=== PATIENT | male | born 1940 | race Caucasian/White ===

== ENCOUNTER → 2016-12-29 | Outpatient (CLI) | payer MEDICARE ==
[2016-12-12 15:38] VITALS: BP 143/59
[~2016-12-29] MED LIST: ACET-704 PO; ALPR0.5T PO; ASPI81TA2 PO; ATORVASTATIN CA80 MG PO; BUDE10.2 IH; CLOP75TA27 PO; DULO60CA6 PO; FURO-69 PO; ISOS30TA PO; METF500T4 PO; METO100T5 PO; QUIN40TA7 PO; TIOT18CA IH; TRAZ100T12 PO; VENTOLIN HFA18 GM INH
--- NOTE | 2016-12-29 13:09 | KCIC ---
PROCEDURE Two-view chest HISTORY Pleural effusion. COMPARISON Images are available from December 12, 2016 but prior report is not available. FINDINGS Pacing and defibrillating device is identified. No pneumothorax. No pleural effusion. No focal airspace consolidation. The cardiac silhouette appears upper limits of normal. No gross vascular congestion. IMPRESSION Upper limits normal cardiac silhouette size. No airspace consolidation Electronically signed by: Josiah Barreto MD (Dec 29, 2016 13:07:40)
== END | disposition home or self-care (01) ==
LOC: KCIC 09:22
PROVIDERS: ATTEND Family Medicine
DX: J90 Pleural effusion, not elsewhere classified (principal); Z95.811 Presence of heart assist device
CPT/HCPCS: 71020

== ENCOUNTER → 2017-01-01 | Outpatient (CLI) | payer MEDICARE ==
[2016-12-12 15:38] VITALS: BP 143/59
--- NOTE | 2017-01-01 16:54 | CARD ---
APPROVED REPORT EXAM: Two-dimensional and M-mode echocardiogram with Doppler and color Doppler. Other Information Quality : AverageHR: 56bpm INDICATION Pleural Effusion Cardiomyopathy 2D DIMENSIONS RVDd3.2 (2.9-3.5cm)Left Atrium(2D)3.9 (1.6-4.0cm) IVSd0.9 (0.7-1.1cm)Aortic Root(2D)2.9 (2.0-3.7cm) LVDd4.9 (3.9-5.9cm)LVOT Diameter2.4 (1.8-2.4cm) PWd0.8 (0.7-1.1cm)LVDs3.5 (2.5-4.0cm) FS (%) 27.7 %SV60.4 ml LVEF(%)53.6 (>50%) Aortic Valve AoV Peak Mark.110.0cm/sAoV VTI23.5cm AO Peak GR.4.8mmHgLVOT Peak Mark.95.8cm/s LVOT VTI 20.82cmAO Mean GR.3mmHg JANIS (VMAX)3.96cr5PRG (VTI)4.01cm2 Mitral Valve MV E Htlmmmaa92.7cm/sMV DECEL DQZE627kd MV A Jxdvfumn53.0cm/sMV E Mean Gr.2mmHg MV FNJ64onP/A Ratio0.9 MV A Jvipdgkq500ayHGC (PHT)4.12cm2 TDI E/Lateral E'13.6E/Medial E'14.0 Pulmonary Vein S1 Tbelcitz60.8cm/sD2 Rtqxkfce96.1cm/s LEFT VENTRICLE The left ventricle is normal size. There is normal left ventricular wall thickness. Left ventricle sy stolic function is low normal. The Ejection Fraction is estimated at 50%. Transmitral Doppler flow pa ttern is Grade I-abnormal relaxation pattern. RIGHT VENTRICLE The right ventricle is normal size. There is normal right ventricular wall thickness. The right ventr icular systolic function is normal. ATRIA The left atrium is mildly dilated. The right atrium size is normal. The interatrial septum is intact with no evidence for an atrial septal defect or patent foramen ovale as noted on 2-D or Doppler imagi ng. AORTIC VALVE The aortic valve is trileaflet. The aortic valve is normal in structure and function. Doppler and Col or Flow revealed no significant aortic regurgitation. There is no significant aortic valvular stenosi s. MITRAL VALVE The mitral valve is normal in structure. There is no evidence of mitral valve prolapse. There is no m itral valve stenosis. Doppler and Color Flow revealed mild mitral regurgitation. TRICUSPID VALVE The tricuspid valve is normal in structure and function. Doppler and Color Flow revealed trace tricus pid valve regurgitation. There is no tricuspid valve stenosis. PULMONIC VALVE The pulmonic valve is not well visualized. GREAT VESSELS The aortic root is normal in size. Normal pulmonary venous flow (Doppler). The IVC is dilated and col lapses >50% with inspiration. PERICARDIAL EFFUSION There is no evidence of significant pericardial effusion. Critical Notification Critical Value: No <Conclusion> Left ventricle systolic function is low normal. The Ejection Fraction is estimated at 50%. Mild mitral regurgitation. Trace tricuspid valve regurgitation. There is no evidence of significant pericardial effusion.
== END | disposition home or self-care (01) ==
LOC: ECHO 10:42
PROVIDERS: ATTEND Family Medicine
DX: J90 Pleural effusion, not elsewhere classified (principal); I42.9 Cardiomyopathy, unspecified
CPT/HCPCS: 93306

== ENCOUNTER → 2017-01-09 | Outpatient (CLI) | payer MEDICARE ==
[~2017-01-09] VITALS: Ht 177.8 cm; Wt 101.8 kg
[2017-01-09] VITALS (12 sets, daily range): BP systolic 92–132; BP diastolic 51–69
[~2017-01-09] MED LIST changes: +FENTANYL PF 100 MCG/2 ML VIAL. IV ONE; +FENTANYL PF 100 MCG/2 ML VIAL. ONE; +HEPARIN for IV BOLUS 10,000 UNIT/10 ML VIAL. IART ONE; +HEPARIN for IV BOLUS 10,000 UNIT/10 ML VIAL. ONE; +IODIXANOL 320 MG/ML 100 ML VIAL. IART ONE; +IODIXANOL 320 MG/ML 100 ML VIAL. ONE; +IV 1/2 NORMAL SALINE 1,000 ML IV SCH; +LIDOCAINE 2% 20 ML VIAL. IJ ONE; +LIDOCAINE 2% 20 ML VIAL. ONE; +MIDAZOLAM HCL/PF 5 MG/5 ML VIAL IV ONE; +MIDAZOLAM HCL/PF 5 MG/5 ML VIAL ONE; +NITROGLYCERIN 200 MCG/2 ML SYRINGE FOR CATH/VASC LAB. IART ONE; +NITROGLYCERIN 200 MCG/2 ML SYRINGE FOR CATH/VASC LAB. ONE; +NITROGLYCERIN SUBLINGUAL 0.4 MG BOTTLE OF 25. SL PRN; +VERAPAMIL 5 MG/2 ML VIAL. IART ONE; +VERAPAMIL 5 MG/2 ML VIAL. ONE
[2017-01-09 09:12] LABS: CALCIUM 9.5 mg/dL (8.5-10.1); CREATININE 1.2 mg/dL (0.7-1.3); GFR 59.2; POTASSIUM 4.1 mmol/L (3.5-5.1)
[2017-01-09 09:17] LABS: HEMATOCRIT 46.7 % (39.0-53.0); HEMOGLOBIN 15.7 g/dL (13.0-17.5); RED BLOOD COUNT 5.14 x10^6/uL (4.30-5.70); RED CELL DISTRIBUTION WIDTH 13.2 % (11.5-14.5); WHITE BLOOD COUNT 10.5 x10^3/uL (4.0-11.0)
[2017-01-09 10:10] LABS: PROTHROMBIN TIME PATIENT 12.5 SEC (11.7-14.0)
--- NOTE | 2017-01-09 15:42 | CARD ---
APPROVED REPORT Procedure(s) performed: Left heart catheterization, selective coronary angiography, selective angiogr aphy of the bypass grafts via left transradial approach INDICATION The indication(s) include : unstable angina . PROCEDURE NARRATIVE After explaining the risks, benefits and alternative options, informed consent was obtained from todd ent. Patient was brought to the cardiac Group Account Director and his left wrist was prepped and draped in the usu al fashion after confirming a positive modified Matthew's test. Arterial access was obtained in the lef t radial artery and 6 Peruvian sheath was inserted. 6 Peruvian JR4 catheter was used to perform selective angiography of the left internal mammary artery graft to the left anterior descending artery, yocha dehe right coronary artery, saphenous vein graft to the marginal branch. 6 Peruvian IM catheter was used to perform selective angiography of the saphenous vein graft to the right coronary artery and also the left main coronary artery. Finally, 6 Peruvian pigtail catheter was used to perform left ventricular pr essure. Patient tolerated the procedure well. Hemostasis was achieved using TR band. There were no im mediate complications. FINDINGS 1. Hemodynamics: Left ventricle end diastolic pressure 24 mmHg. No pullback gradient across the aor tic valve. 2. Left ventriculography: Diaphragmatic wall hypokinesis with ejection fraction estimated at 45-50% . 3. Coronary and bypass graft angiography: a. The left main coronary artery arose from the left sinus of Valsalva, gave rise to the left anteri or descending and left circumflex arteries and showed mild diffuse disease. b. The left anterior descending artery showed 100% occlusion in the midsegment. The first diagonal b ranch did not show any significant stenosis. c. The left circumflex artery showed 100% occlusion in the midsegment. The first obtuse marginal bra nch showed mild to moderate diffuse disease distally. d. The right coronary artery arose from the right sinus of Valsalva showed 99% stenosis in the midse gment and 100% occlusion in the distal segment. e. The left internal mammary artery graft to the left anterior descending artery was widely patent. Distal to the anastomosis, the left anterior descending artery did not show any significant stenosis. f. The saphenous vein graft to the second obtuse marginal branch was widely patent. g. The saphenous vein graft to the right coronary artery was widely patent. Distal to the anastomosi s, the posterior descending branch did not show any significant stenosis. d. Conclusion 1. Coronary artery disease s/p coronary artery bypass surgery with patent left internal mammary anjel ry graft to the left anterior descending artery, patent saphenous vein graft to the second obtuse mar ginal branch and patent saphenous vein graft to the right coronary artery. 2. Diaphragmatic wall hypokinesis with ejection fraction estimated at 45-50%. Recommendations Medical Therapy
== END | disposition home or self-care (01) ==
LOC: CCL 08:27
PROVIDERS: ATTEND Internal Medicine Cardiovascular Disease
DX: I25.110 Atherosclerotic heart disease of native coronary artery with unstable angina pectoris (principal); I25.82 Chronic total occlusion of coronary artery; E78.00 Pure hypercholesterolemia, unspecified; J44.9 Chronic obstructive pulmonary disease, unspecified; M19.90 Unspecified osteoarthritis, unspecified site; F41.9 Anxiety disorder, unspecified; F32.9 Major depressive disorder, single episode, unspecified; E11.9 Type 2 diabetes mellitus without complications; Z98.41 Cataract extraction status, right eye; Z98.42 Cataract extraction status, left eye; Z90.49 Acquired absence of other specified parts of digestive tract; Z87.891 Personal history of nicotine dependence
CPT/HCPCS: 36415; 80048; 85027; 85610; 93458; C1769; C1892; J2250; J3010; J3490

== ENCOUNTER → 2018-02-07 | Outpatient (CLI) | payer MEDICARE | END | disposition home or self-care (01) | LOC: ECHO 12:44 | DX: I11.0 Hypertensive heart disease with heart failure (principal); I50.22 Chronic systolic (congestive) heart failure; I08.1 Rheumatic disorders of both mitral and tricuspid valves; E78.5 Hyperlipidemia, unspecified; J44.9 Chronic obstructive pulmonary disease, unspecified; E78.00 Pure hypercholesterolemia, unspecified; E66.9 Obesity, unspecified | CPT/HCPCS: 93306 ==

== ENCOUNTER → 2019-01-30 | Day surgery (SDC) | payer MEDICARE ==
[~2019-01-30] MED LIST changes: +ASPI-630 PO; -ASPI81TA2 PO; +ASPI81TA50 PO; -CLOP75TA27 PO; +CLOP75TA57 PO; -FENTANYL PF 100 MCG/2 ML VIAL. IV ONE; -FENTANYL PF 100 MCG/2 ML VIAL. ONE; -HEPARIN for IV BOLUS 10,000 UNIT/10 ML VIAL. IART ONE; -HEPARIN for IV BOLUS 10,000 UNIT/10 ML VIAL. ONE; -IODIXANOL 320 MG/ML 100 ML VIAL. IART ONE; -IODIXANOL 320 MG/ML 100 ML VIAL. ONE; -IV 1/2 NORMAL SALINE 1,000 ML IV SCH; +IV RINGERS,LACTATED 1000ML 1,000 ML IV SCH; -LIDOCAINE 2% 20 ML VIAL. IJ ONE; -LIDOCAINE 2% 20 ML VIAL. ONE; +LIDOCAINE 2% PF 5 ML VIAL. ONE; +METF500T16 PO; -METF500T4 PO; -MIDAZOLAM HCL/PF 5 MG/5 ML VIAL IV ONE; -MIDAZOLAM HCL/PF 5 MG/5 ML VIAL ONE; -NITROGLYCERIN 200 MCG/2 ML SYRINGE FOR CATH/VASC LAB. IART ONE; -NITROGLYCERIN 200 MCG/2 ML SYRINGE FOR CATH/VASC LAB. ONE; -NITROGLYCERIN SUBLINGUAL 0.4 MG BOTTLE OF 25. SL PRN; +PROPOFOL 20 ML IV ONE; +QUIN40TA16 PO; -QUIN40TA7 PO; +TRAZ-86 PO; -TRAZ100T12 PO; -VERAPAMIL 5 MG/2 ML VIAL. IART ONE; -VERAPAMIL 5 MG/2 ML VIAL. ONE
[2019-01-30 14:05] VITALS: BP 122/70
--- NOTE | 2019-02-04 09:12 | PATHOLOGY ---
[facility] Accession Number: [id number] . 01 Material submitted: . ESOPHAGEAL BIOPSY . 01 Clinical history: . GERD . 02 Diagnosis: Esophageal biopsy: - Esophagitis with eosinophils and focal ulceration. See comment. LBQ/02/03/2019 . 02 Comment: Sections of the esophageal biopsy reveal segments of hyperplastic squamous esophageal mucosa showing focal ulceration, acute inflammation, and granulation tissue. The segments of hyperplastic squamous esophageal mucosa show increased intraepithelial eosinophils. The differential diagnosis of esophagitis with eosinophils includes reflux esophagitis, "pill esophagitis", and eosinophilic esophagitis. There are several foci showing greater than 30 intraepithelial eosinophils per high power field. 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 There is no evidence of Alejandro's change, dysplasia, or malignancy. (JPM/db; 02/03/2019) . 02 Electronically signed: . Michael Le MD, Pathologist NPI- [id number] . 01 Gross description: . The specimen is received in formalin, labeled "MatthewsTre, esophageal biopsies", are several red-white mucosal fragments measuring 0.5 x 0.4 x 0.1 cm in aggregate, entirely submitted in A1. ([facility]; 01/31/2019) SHS/SHS . 02 Pathologist provided ICD-10: K20.0, K21.0, K22.10 . 02 CPT . 393638 Specimen Comment: A courtesy copy of this report has been sent to Specimen Comment: [phone], . Specimen Comment: Report sent to / DR LUCIANO Performed at: [address], [place], [place] [id number] MD Martin Bourgeois MD Phone: [phone] Performed at: [address] [id number] MD Michael Le MD Phone: [phone]
== END | disposition home or self-care (01) ==
LOC: ENDOS 11:59
PROVIDERS: ATTEND Internal Medicine Gastroenterology
DX: K22.10 Ulcer of esophagus without bleeding (principal); K22.2 Esophageal obstruction; K21.0 Gastro-esophageal reflux disease with esophagitis; I25.10 Atherosclerotic heart disease of native coronary artery without angina pectoris; E11.9 Type 2 diabetes mellitus without complications; F41.9 Anxiety disorder, unspecified; I11.0 Hypertensive heart disease with heart failure; I50.9 Heart failure, unspecified; F32.9 Major depressive disorder, single episode, unspecified; J43.9 Emphysema, unspecified; E78.00 Pure hypercholesterolemia, unspecified; I25.2 Old myocardial infarction; Z95.810 Presence of automatic (implantable) cardiac defibrillator; Z87.891 Personal history of nicotine dependence; Z86.73 Personal history of transient ischemic attack (TIA), and cerebral infarction without residual deficits; Z79.82 Long term (current) use of aspirin; Z79.899 Other long term (current) drug therapy; Z79.84 Long term (current) use of oral hypoglycemic drugs; Z88.2 Allergy status to sulfonamides; Z95.5 Presence of coronary angioplasty implant and graft; M19.90 Unspecified osteoarthritis, unspecified site; Z86.010 Personal history of colon polyps; Z83.3 Family history of diabetes mellitus; Z82.49 Family history of ischemic heart disease and other diseases of the circulatory system; Z72.89 Other problems related to lifestyle; Z90.49 Acquired absence of other specified parts of digestive tract; Z98.49 Cataract extraction status, unspecified eye; Z96.1 Presence of intraocular lens
CPT/HCPCS: 43239; 43450; 88305; J2001; J2704

== ENCOUNTER → 2019-05-15 | Outpatient (CLI) | payer MEDICARE ==
[2019-01-30 14:05] VITALS: BP 122/70
[~2019-05-15] MED LIST changes: -IV RINGERS,LACTATED 1000ML 1,000 ML IV SCH; -LIDOCAINE 2% PF 5 ML VIAL. ONE; -PROPOFOL 20 ML IV ONE
--- NOTE | 2019-05-15 14:33 | CARD ---
MR#: [id number] Date of Study: 05/15/2019 Ordering Physician: SIRIA GUERRA, Referring Physician: SIRIA GUERRA Tech: America Del Valle RDCS APPROVED REPORT EXAM: Two-dimensional and M-mode echocardiogram with Doppler and color Doppler. Other Information Quality : Fair Technically limited study due to body habitus. INDICATION Congestive Heart Failure Surgery/Intervention Pacemaker: Date: 2015 2D DIMENSIONS RVDd1.8 (2.9-3.5cm)Left Atrium(2D)5.0 (1.6-4.0cm) IVSd0.9 (0.7-1.1cm)Aortic Root(2D)2.9 (2.0-3.7cm) LVDd5.3 (3.9-5.9cm)LVOT Diameter2.3 (1.8-2.4cm) PWd1.3 (0.7-1.1cm)LVDs4.2 (2.5-4.0cm) FS (%) 21.0 %SV56.5 ml LVEF(%)40.0 (>50%) Aortic Valve AoV Peak Mark.108.8cm/sAoV VTI22.9cm AO Peak GR.4.7mmHgLVOT Peak Mark.80.6cm/s LVOT VTI 19.00cmAO Mean GR.3mmHg JANIS (VMAX)3.28zv8VGO (VTI)3.40cm2 Mitral Valve MV E Lwtpsyzt728.9cm/sMV DECEL KUYE303pq MV A Foysjdsz90.0cm/sMV DAF27cl E/A Ratio1.2MVA (PHT)3.76cm2 TDI E/Lateral E'23.1E/Medial E'22.4 Tricuspid Valve TR P. Jnyjiaqo869ba/sRAP VMJNXRVY6dqDv TR Peak Gr.10gzDtGZNN49mjXb Pulmonary Vein S1 Xvbdwlya63.3cm/sD2 Iookrgbv70.8cm/s LEFT VENTRICLE The left ventricle is normal size. There is mild asymmetric posterior wall hypertrophy. Left ventricl e systolic function is moderately impaired. The Ejection Fraction is 35-40%. There is global hypokine sis of the left ventricle. Inferior wall is severely hypokinetic. Transmitral Doppler flow pattern is Grade I-abnormal relaxation pattern. RIGHT VENTRICLE The right ventricle is normal size. The right ventricular systolic function is normal. There is a pac emaker lead in the right ventricle. ATRIA The left atrium is moderately dilated. The right atrium is mildly dilated. A pacemaker is seen in the right atrium consistent with history. The interatrial septum is intact with no evidence for an atria l septal defect or patent foramen ovale as noted on 2-D or Doppler imaging. AORTIC VALVE The aortic valve is not well visualized but appears to function normally by Doppler interrogation. Do ppler and Color Flow revealed no significant aortic regurgitation. There is no significant aortic harvey vular stenosis. MITRAL VALVE The mitral valve is calcified but opens well. There is no evidence of mitral valve prolapse. There is no mitral valve stenosis. Doppler and Color-flow revealed mild mitral regurgitation. TRICUSPID VALVE The tricuspid valve is normal in structure and function. Doppler and Color Flow revealed trace tricus pid regurgitation. There is mild pulmonary hypertension. The PA pressure was estimated at 34 mmHg. Th ere is no tricuspid valve stenosis. PULMONIC VALVE The pulmonic valve is not well visualized. Doppler and Color Flow revealed trace to mild pulmonic harvey vular regurgitation. There is no pulmonic valvular stenosis. GREAT VESSELS The aortic root is normal in size. The ascending aorta is not well seen. The IVC is normal in size an d collapses >50% with inspiration. PERICARDIAL EFFUSION There is no evidence of significant pericardial effusion. Critical Notification Critical Value: No <Conclusion> Left ventricle systolic function is moderately impaired. The Ejection Fraction is 35-40%. There is global hypokinesis of the left ventricle. Inferior wall is severely hypokinetic. There is a pacemaker lead in the right ventricle. Signed by : Billy Ruiz, Electronically Approved : 05/15/2019 14:32:26
== END | disposition home or self-care (01) ==
LOC: ECHO 13:12
PROVIDERS: ATTEND Internal Medicine Cardiovascular Disease
DX: I08.8 Other rheumatic multiple valve diseases (principal); I27.20 Pulmonary hypertension, unspecified; I50.22 Chronic systolic (congestive) heart failure; Z95.0 Presence of cardiac pacemaker
CPT/HCPCS: 93306

== ENCOUNTER → 2019-11-20 | Outpatient (CLI) | payer MEDICARE ==
[2019-01-30 14:05] VITALS: BP 122/70
[~2019-11-20] MED LIST changes: +REGADENOSON 0.4 MG/5 ML DISP.SYRIN. IV ONE; +TRAZ-123 PO; -TRAZ-86 PO
--- NOTE | 2019-11-20 16:30 | RAD ---
MR#: [id number] Date of Study: 11/20/2019 Ordering Physician: SIRIA RICHARDS, Referring Physician: LUBA SANCHES Tech: RT Jovany (Desiree) (N) APPROVED REPORT Test Type: Pharmacological Stress Nurse/Tech: Estevan GOODE Test Indications: CAD Cardiac History: CABGx 4 in 2000, AICD, HTN, See EMR Medications: See EMR Medical History: COPD, DM, X-Smoker= Quit 20 yrs ago, Stroke x2, See EMR Resting ECG: V-Paced Resting Heart Rate: 70 bpm Resting Blood Pressure: 109/60mmHg Pretest Chest Pain: No chest pain Nurse/Tech Notes Lungs with crackles in the bases and wheezing on the left side. Heart tones regular. Consent: The procedure was explained to the patient in lay terms. Informed consent was witnessed. Thee eout was entered into [employer]. History and Stress Test performed by aYry Reina, LUBATCApril, ARRT (R) (N) Pharm. Details Pharmacologic stress testing was performed using 0.4mg per 5ml of regadenoson given intravenously ove r 7-10 seconds. Stress Symptoms Pt c/o a all over chest heaviness. Mr. Matthews explains that it is not a bad feeling, just different. He explains that he can not rate it. POST EXERCISE Reason for Termination: Infusion complete Max HR: 83 bpm Max Blood Pressure: 134/62mmHg Blood Pressure response to exercise: Normal blood pressure response during stress. Heart Rate response to exercise: WNL Chest Pain: No. Arrhythmia: Yes. Frequent PVCs ST Change: No. INTERPRETATION Stress EKG Conclusion: Baseline EKG showed paced ventricular rhythm. Nondiagnostic changes at peak st ress. No arrhythmias. Imaging Protocol IMAGE PROTOCOL: Rest Tc-99m/stress Tc-99m 1 day Rest: Stress: Viability: Radiopharm.Tc99m YszpqnxolSn82v Sestamibi Dose10.5mCi 33mCi Duration 15min. 10min. Img Date 11/20/2019 11/20/2019 Inj-Img Kjzc22gsz. 60min. Rest Admin Site:IV - Left AntecubitalAdministrator:Ginette Salazar, RT (R)(N) Stress Admin Site: IV - Left AntecubitalAdministrator: YAMILET Meier, ARRT (R)(N) STRESS DATA End Diast. Vol.137.0mlAv. Heart Rate70.0bpm End Syst. Vol.69.0mlCO Index BSA0.0L/min Myocardial Kqax835.0gEject. Kwiiujau45.0% Stress Rates Pk. Fill Rate2.52EDV/secLVtime Pk. Fill 228.25msec Pk. Empty Rate2.20ESV/secLVtime Pk. Jwqku035.52msec 11/07 Pk. Fill0.72EDV/sec Stress Scores Regional WT0.00Summed WT13.00 Regional WM0.00Summed WM8.00 LV Perfusion Scintigraphic images showed large fixed defect involving the inferolateral wall extending into the la teral wall and the basal inferior wall consistent with previous myocardial infarction without any sig nificant reversibility. Wall Motion Basal inferior and posterior wall hypokinesis with ejection fraction calculated at 50%. LV Perf. Quant 17 Seg. SSS12.00 17 Seg. SRS16.00 17 Seg. SDS0.00 Stress Defect Extent (% LAD)0.00Rest Defect Extent (% LAD)1.90Rev. Defect Extent (% LAD)0.00 Stress Defect Extent (% LCX) 58.80Rest Defect Extent (% LCX)60.00Rev. Defect Extent (% LCX)1.30 Stress Defect Extent (% RCA)28.90Rest Defect Extent (% RCA)38.90Rev. Defect Extent (% RCA)0.00 Stress Defect Extent (% NAYAN)22.80Rest Defect Extent (% NAYAN)26.50Rev. Defect Extent (% NAYAN)0.40 Conclusion 1. Regadenoson cardioisotope stress test large infarct involving the wall extending into the lateral wall and the basal inferior wall without any significant ischemia. 2. Basal inferior and posterior wall hypokinesis with ejection fraction calculated at 50%. 3. Low to intermediate risk for cardiac events. Signed by : Siria Richards, Electronically Approved : 11/20/2019 16:29:50
== END | disposition home or self-care (01) ==
LOC: NM 09:10
PROVIDERS: ATTEND Internal Medicine Cardiovascular Disease
DX: I49.3 Ventricular premature depolarization (principal); I25.10 Atherosclerotic heart disease of native coronary artery without angina pectoris; I10 Essential (primary) hypertension; J44.9 Chronic obstructive pulmonary disease, unspecified; E11.9 Type 2 diabetes mellitus without complications; Z95.810 Presence of automatic (implantable) cardiac defibrillator; Z87.891 Personal history of nicotine dependence
CPT/HCPCS: 78452; 93017; A9500; J2785

== ENCOUNTER 2019-12-02 07:11 | Observation (INO) | payer MEDICARE ==
[~2019-12-02] VITALS: Ht 175.3 cm; Wt 97.3 kg
[2019-12-02] VITALS (14 sets, daily range): BP systolic 90–145; BP diastolic 53–98
[~2019-12-02 07:11] MED LIST changes: -REGADENOSON 0.4 MG/5 ML DISP.SYRIN. IV ONE
[2019-12-02 08:50] LABS: HEMATOCRIT 43.5 % (39.0-53.0); HEMOGLOBIN 14.9 g/dL (13.0-17.5); RED BLOOD COUNT 4.84 x10^6/uL (4.30-5.70); RED CELL DISTRIBUTION WIDTH 13.1 % (11.5-14.5); WHITE BLOOD COUNT 10.3 x10^3/uL (4.0-11.0)
[2019-12-02 08:59] LABS: CALCIUM 9.6 mg/dL (8.5-10.1); CREATININE 1.2 mg/dL (0.7-1.3); GFR 58.9; POTASSIUM 4.3 mmol/L (3.5-5.1)
[2019-12-02 09:00] LABS: PROTHROMBIN TIME PATIENT 12.6 SEC (11.7-14.0)
--- NOTE | 2019-12-02 10:51 | RAD ---
MR#: [id number] Date of Study: 12/02/2019 Ordering Physician: SIRIA GUERRA, Referring Physician: SIRIA GUERRA, Tech: Franco Meraz MBA, RDMS, RVT, RDCS, RTR APPROVED REPORT Patient Location: OUT-PATIENT Laterality:Bilateral Indications CAD Doppler Spectral Velocity Analysis Right Left pCCA 100/13 cm/spCCA 124/16 cm/s mCCA 125/13 cm/smCCA 138/25 cm/s dCCA 115/13 cm/sdCCA 115/20 cm/s Bulb 80/17 cm/sBulb 133/16 cm/s ECA 157/ cm/sECA 128/ cm/s pICA 117/19 cm/spICA 144/36 cm/s Yaya 120/33 cm/smICA 147/36 cm/s dICA 90/16 cm/sdICA 91/21 cm/s Vert. 14/ cm/sVert. 55/ cm/s Subcl. 162/ cm/sSubcl. 163/ cm/s ICA/CCA 0.96ICA/CCA 1.19 Findings Grayscale images of the bilateral common carotid, external and internal carotid vessels reveal modera te diffuse intimal hyperplasia and mild diffuse plaque mostly localized to the carotid bulbs On the right side no obvious critical stenosis identified. Overall 0 to less than 50% stenosis based on velocity criteria. The right vertebral artery demonstrates to and fro flow suggestive of proximal subclavian disease. Velocities are diminished in the right vertebral artery.. On the left side there is a moderate 50-69% stenosis involving the proximal and mid internal carotid artery. The left vertebral velocities are within normal limits. Bilateral subclavian velocities are grossly within normal limits. Critical Notification Critical Value: No <Conclusion> 1. Moderate 50-69% stenosis involving the left internal carotid artery by velocity criteria 2. Severely diminished right vertebral velocities with to-and-fro flow suggestive of stenosis versus right subclavian disease Signed by : Billy Ruiz, Electronically Approved : 12/02/2019 10:50:58
[2019-12-02] MEDS ORDERED: IODIXANOL 320 MG/ML 100 ML VIAL. ONE ×2 (11:19→12:37)
[2019-12-02] MEDS ORDERED: LIDOCAINE 1% PF 2 ML VIAL. ONE (11:19)
[2019-12-02] MEDS ORDERED: HEPARIN for IV BOLUS 10,000 UNIT/10 ML VIAL. ONE (12:11)
[2019-12-02] MEDS ORDERED: fentaNYL PF VIAL 100 MCG/2 ML VIAL ONE ×2 (12:11→12:48)
[2019-12-02] MEDS ORDERED: MIDAZOLAM HCL/PF 2 MG/2 ML VIAL. ONE ×2 (12:11→12:48)
[2019-12-02] MEDS ORDERED: VERAPAMIL 5 MG/2 ML VIAL. ONE (12:12)
[2019-12-02] MEDS ORDERED: NITROGLYCERIN 200 MCG/2 ML SYRINGE FOR CATH/VASC LAB. ONE ×2 (12:12→13:06)
[2019-12-02] MEDS ORDERED: VERAPAMIL 5 MG/2 ML VIAL. IART ONE (12:30)
[2019-12-02] MEDS ORDERED: CONTRAST GIVEN. MC PRN (12:30)
[2019-12-02] MEDS ORDERED: NITROGLYCERIN 200 MCG/2 ML SYRINGE FOR CATH/VASC LAB. IART ONE ×2 (12:30→13:15)
[2019-12-02] MEDS ORDERED: HEPARIN for IV BOLUS 10,000 UNIT/10 ML VIAL. IART ONE (12:30)
[2019-12-02] MEDS ORDERED: fentaNYL PF VIAL 100 MCG/2 ML VIAL IV ONE ×2 (12:30→13:00)
[2019-12-02] MEDS ORDERED: LIDOCAINE 1% PF 2 ML VIAL. INJ ONE (12:30)
[2019-12-02] MEDS ORDERED: IODIXANOL 320 MG/ML 100 ML VIAL. IART ONE (12:30)
[2019-12-02] MEDS ORDERED: MIDAZOLAM HCL/PF 2 MG/2 ML VIAL. IV ONE ×2 (12:30→13:00)
[2019-12-02] MEDS ORDERED: BIVALIRUDIN 250 MG VIAL. IV ONE ×4 (12:41→13:30)
[2019-12-02] MEDS ORDERED: CLOPIDOGREL BISULFATE 75 MG TABLET PO ONE ×2 (13:30)
[2019-12-02] MEDS ORDERED: ASPIRIN 325 MG TABLET PO ONE (13:30)
[2019-12-02] MEDS ORDERED: CLOPIDOGREL BISULFATE 75 MG TABLET ONE (13:41)
[2019-12-02] MEDS ORDERED: ASPIRIN 325 MG TABLET ONE (13:41)
--- NOTE | 2019-12-02 14:13 | CARD ---
MR#: [id number] Date of Study: 12/02/2019 Ordering Physician: SIRIA GUERRA, Referring Physician: SIRIA GUERRA, Tech: RAJWINDER ODEN RTR APPROVED REPORT Technologist: RAJWINDER ODEN RTR Nurse: LUZ MARINA WEINSTEIN RN Procedure(s) performed: 1. Left heart catheterization, selective coronary angiography and selective angiography of the bypass grafts via left transradial approach 2. Successful PCI/drug eluting stent placement to the saphenous vein graft to the right coronary art jenny MODERATE SEDATION TIME: 92 MIN FLUORO TIME: 27.3 MIN DOSE: 113.6 GYCM2 CONTRAST: 186CC VISI INDICATION The indication(s) include : unstable angina . CSHA Clinical Frailty Scale CSHA Clinical Frailty Scale: Mildly Frail Heart Failure Heart Failure: No PROCEDURE NARRATIVE After explaining the risks, benefits and alternative options, informed consent was obtained from todd ent. Patient was brought to the cardiac [employer] Dispatcher and his left wrist was prepped and draped in the usu al fashion after confirming a positive modified Matthew's test. Arterial access was obtained in the lef t radial artery and a 6 Vincentian sheath was inserted. 6 Vincentian IM catheter was used to perform selectiv e angiography of the left internal mammary artery graft to the left anterior descending artery and al so the north fork right coronary artery. 6 Vincentian JR4 catheter was used to perform selective angiography of the saphenous vein graft to the obtuse marginal branch. 6 Vincentian MPA catheter was used to perform selective angiography of the saphenous vein graft the right coronary artery. After several unsuccessf ul attempts at engaging the left main coronary artery with the MPA catheter followed by 6 Vincentian JL4 catheter, this was engaged with 6 Vincentian AL0.75 guide catheter and angiography was performed. LVEDP a nd transaortic gradients were measured. The following findings were noted. FINDINGS 1. Hemodynamics: Left ventricle end diastolic pressure 20 mmHg. No pullback gradient across the aor tic valve. 2. Coronary and bypass graft angiography: a. The left main coronary artery arose from the left sinus of Valsalva, gave rise to the left anteri or descending and left circumflex arteries and showed mild diffuse disease. b. The left anterior descending artery showed 100% occlusion in the midsegment. c. The left circumflex artery showed 100% occlusion in the midsegment. d. The right coronary artery arose from the right sinus of Valsalva that showed 80% stenosis in the proximal segment followed by 100% occlusion in the midsegment. e. The left internal mammary artery graft to the left anterior descending artery was widely patent. Distal to the anastomosis, the north fork left anterior descending artery did not show any significant st enosis. f. The saphenous vein graft to the second obtuse marginal branch was widely patent. g. The saphenous vein graft to the right coronary artery showed 80% stenosis in the midsegment. Dist al to the anastomosis, the posterior descending branch did not show any significant stenosis. INTERVENTION The saphenous vein graft to the right coronary artery was engaged with 6 Vincentian MPA 2 guide catheter. The stenosis in the midsegment was crossed with a 0.014 inch [place] water guidewire. This was pre dilated with a 2.5 x 15 mm euphora balloon following which this was successfully treated with a 3.0 x 18 mm resolute anthony drug-eluting stent. Follow-up angiography showed resolution of the stenosis to 0 % with NEGRITA-3 distal flow. Patient tolerated the procedure well patent hemostasis was achieved using TR band. There were no immediate complications. NEGRITA Flow NEGRITA Flow (Pre-Intervention): NEGRITA-3 NEGRITA Flow (Post-Intervention): NEGRITA-3 Conclusion 1. Severe north fork vessel coronary artery disease s/p coronary artery bypass surgery as described above with patent BARFIELD to LAD, patent SVG to OM2 and 80% stenosis involving SVG to RCA. 2. Successful PCI/drug eluting stent placement to the saphenous vein graft to the right coronary art jenny. Recommendations 1. Aspirin 325 mg daily for one month followed by 81 mg daily 2. Plavix 75 mg daily for preferably one year 3. Cardiovascular risk factor modification Signed by : Siria Guerra, Electronically Approved : 12/02/2019 14:13:27
[2019-12-02] MEDS: ASPIRIN ENTERIC COATED 325 MG TABLET.DR. PO SCH (16:00)
[2019-12-02] MEDS: ALPRAZolam 0.5 MG TABLET PO SCH ×2 (16:00→21:17)
[2019-12-02] MEDS: ISOSORBIDE MONONITRATE ER 30 MG TAB.ER.24H PO SCH (16:00)
[2019-12-02] MEDS: CLOPIDOGREL BISULFATE 75 MG TABLET PO SCH (16:00)
[2019-12-02] MEDS ORDERED: ATORVASTATIN CALCIUM 10 MG TABLET. PO SCH (21:00)
[2019-12-02] MEDS ORDERED: traZODone 100 MG TABLET. PO SCH (21:00)
[2019-12-02] MEDS: METOPROLOL SUCC 24HR ER 100 MG TAB.ER.24H. PO SCH (21:18)
[2019-12-03 02:04] VITALS: BP 126/60
[2019-12-03 07:46] VITALS: BP 128/63
[2019-12-03] MEDS: ASPIRIN ENTERIC COATED 325 MG TABLET.DR. PO SCH (08:21)
[2019-12-03] MEDS: METOPROLOL SUCC 24HR ER 100 MG TAB.ER.24H. PO SCH (08:22)
[2019-12-03] MEDS: CLOPIDOGREL BISULFATE 75 MG TABLET PO SCH (08:22)
[2019-12-03] MEDS: ISOSORBIDE MONONITRATE ER 30 MG TAB.ER.24H PO SCH (08:23)
[2019-12-03] MEDS: ALPRAZolam 0.5 MG TABLET PO SCH (08:23)
--- NOTE | 2019-12-03 10:45 | PDOC3 ---
BRAD LEE ACCOUNT EXECUTIVE AGRIBUSINESS 12/03/19 1045: Discharge Summary Visit Information Date of Admission: Dec 02, 2019 Date of Discharge: Dec 03, 2019 Admitting Diagnosis: Unstable angina Final Diagnosis Unstable angina. S/P PCI/CHRISSY to SVG to RCA, ICM, Carotid artery disease Brief Hospital Course Allergies Allergies Coded Allergies Type Severity Reaction Last Updated Verified Sulfa (Sulfonamide Antibiotics) Allergy Intermediate 01/30/19 Yes Vital Signs Vital Signs Date Time Temp Pulse Resp B/P (MAP) Pulse Ox O2 Delivery O2 Flow Rate FiO2 12/03/19 08:23 78 128/63 12/03/19 07:46 97.4 16 98 Room Air 97.4 12/02/19 12:30 2.0 Lab Results Laboratory Tests Test 12/02/19 08:45 White Blood Count 10.3 x10^3/uL (4.0-11.0) Red Blood Count 4.84 x10^6/uL (4.30-5.70) Hemoglobin 14.9 g/dL (13.0-17.5) Hematocrit 43.5 % (39.0-53.0) Mean Corpuscular Volume 90 fL (79-100) Mean Corpuscular Hemoglobin 31 pg (25-35) Mean Corpuscular Hemoglobin Concent 34 g/dL (31-37) Red Cell Distribution Width 13.1 % (11.5-14.5) Platelet Count 247 x10^3/uL (140-400) Prothrombin Time 12.6 SEC (11.7-14.0) Prothromb Time International Ratio 1.0 (0.8-1.1) Sodium Level 140 mmol/L (136-145) Potassium Level 4.3 mmol/L (3.5-5.1) Chloride Level 103 mmol/L (98-107) Carbon Dioxide Level 29 mmol/L (21-32) Anion Gap 8 (6-14) Blood Urea Nitrogen 18 mg/dL (8-26) Creatinine 1.2 mg/dL (0.7-1.3) Estimated GFR (Cockcroft-Gault) 58.9 Glucose Level 133 mg/dL (70-99) Calcium Level 9.6 mg/dL (8.5-10.1) Brief Hospital Course Mr. Matthews is a 78 old male admitted for planned C. He was seen in the office and was complaining of dyspnea on exertion with chest pressure. With his hx of CAD with past bypass, this was concerning for unstable angina promopting further evaluation with [facility]. He tolerated the procedure well and PCI/CHRISSY to SVG to RCA. Also noted patent BARFIELD to LAD, patent SVG to OM2. Left wrist arteriotomy site is intact with no erythema or swelling and neurovascular status to left hand is intact. He is ambulatory without SOA nor CP. His VSS. CHF lucero he is compensated. He has ICM and currently BiV pacing. No passing out but does occasional dizzy spells with past hx of TIAs. Carotid doppler was done and showed moderate disease to LICA and there is diminished flow to right vertebral artery with to and fro flow suggestive of proximal subclavian disease but otherwise bilateral subclavian velocities are grossly within normal limits. Outpt neck CTA is a consideration pending any further development of symptomatology but otherwise will treat this medically at this time. Continue with secondary prevention. [facility] instructions as directed. Hold metformin till tomorrow. Plavix Rx given. Full dose ASA for 1 month then change to baby ASA thereafter. Discussed further with family member in room. Follow up in office as scheduled and encouraged cardiac rehab. Discharge Information Condition at Discharge: Stable Follow Up: Weeks (4) Disposition/Orders: D/C to Home Scheduled Alprazolam (Xanax) 0.5 Mg Tablet, 0.5 MG PO TID, Ref 0 (Reported) Entered as Reported by: ABRAHAM MENDENHALL on 07/17/14851 Last Taken: Unknown Dose on 12/02/19 Last Action: Reviewed on 12/02/192125 by Nicole Segura Aspirin (Aspirin Ec) 325 Mg Tablet.dr, 1 TAB PO DAILY for cad, #30 Ref 5 Prescribed by: BRAD LEE on 12/03/19 1047 Atorvastatin Calcium (Atorvastatin Calcium) 80 Mg Tablet, 10 MG PO HS for FOR CHOLESTEROL, #30 Ref 0 (Reported) Entered as Reported by: ABRAHAM MENDENHALL on 07/17/14851 Last Action: Reviewed on 12/02/192125 by Nicole Segura Budesonide/Formoterol Fumarate (Symbicort 160-4.5 Mcg Inhaler) 10.2 Gm Hfa.aer.ad, 2 PUFF IH BID, #1 Ref 5 (Reported) Entered as Reported by: ABRAHAM MENDENHALL on 07/17/14851 Last Action: Reviewed on 12/02/19806 by Yary Whitehead Clopidogrel Bisulfate (Plavix) 75 Mg Tablet, 75 MG PO DAILY for TO PREVENT BLOOD CLOTS, #30 Ref 0 (Reported) Entered as Reported by: ABRAHAM MENDENHALL on 07/17/14851 Last Action: Reviewed on 12/02/192125 by Nicole Segura Duloxetine Hcl (Cymbalta) 60 Mg Capsule.dr, 90 MG PO DAILY for depression, (Reported) Entered as Reported by: ABRAHAM MENDENHALL on 07/17/14851 Last Action: Reviewed on 12/02/192125 by Nicole Segura Isosorbide Mononitrate (Imdur) 30 Mg Tab.er.24h, 30 MG PO DAILY, (Reported) Entered as Reported by: ABRAHAM MENDENHALL on 07/17/14851 Last Action: Reviewed on 12/02/192125 by Nicole Segura Metformin Hcl (Metformin Hcl) 500 Mg Tablet, 500 MG PO DAILY for , Ref 0 (Reported) resume Sunday12/05/2019 Entered as Reported by: GILES HILL on 06/24/151204 Last Action: Reviewed on 12/02/192125 by Nicole Segura Metoprolol Succinate (Toprol Xl) 100 Mg Tab.er.24h, 100 MG PO BID for FOR HYPERTENSION, #30 Ref 0 (Reported) Entered as Reported by: ABRAHAM MENDENHALL on 07/17/14851 Last Action: Reviewed on 12/02/192125 by Nicole Segura Quinapril Hcl (Quinapril Hcl) 40 Mg Tablet, 1 TAB PO DAILY for b/p, #30 Ref 5 (Reported) Entered as Reported by: LONNIE MATAMOROS on 01/30/19 1213 Last Action: Reviewed on 12/02/192125 by Nicole Segura Tiotropium [place] (Spiriva) 18 Mcg Cap.w.dev, 2 INH IH DAILY, #1 Ref 0 (Reported) Entered as Reported by: GILES HILL on 06/24/15 120 Last Action: Reviewed on 12/02/19806 by Yary Whitehead Trazodone Hcl (Trazodone Hcl) 100 Mg Tablet, 100 MG PO HS for sleep, (Reported) Entered as Reported by: ABRAHAM MENDENHALL on 07/17/14 0852 Last Action: Reviewed on 12/02/192125 by Nicole Segura Patient Instructions Patient Instructions GENERAL INSTRUCTIONS: 1. Your dressing should be removed prior to leaving the hospital. 2. It is OK to shower the day after your procedure. 3. If you received stents, be sure to carry your stent information card with you in your wallet/purse at all times. 4. Call the office immediately at [phone] if you notice any fever or if there is redness, worsening tenderness/pain, increased bruising, or drainage from the puncture site. 5. Should you have bleeding from the site, lie down immediately & put pressure on the site. The pressure should be hard enough to stop the bleeding. Have the nearest person call 911. DO NOT try to drive to the ER with active bleeding. 6. If you notice a change in color, coolness to touch, or loss of feeling in the affected extremity, come to the emergency room. Please have someone drive you or call 911 if no one is available. DO NOT drive yourself. 7. If you normally take glucophage (metformin), please do not take this medicine for 48 hours following your procedure. 8. DO NOT STOP TAKING YOUR PLAVIX OR ASPIRIN UNLESS IT IS CLEARED BY A PHOTO PRODUCER OF YOUR DISTRICT TRAFFIC CHIEF AT OUR OFFICE. 9. QUIT SMOKING: the [place] [employer], [place] [employer], & [place] [employer] have cessation resources available on their websites 10. Please have someone available to drive you home from the hospital as you may be limited by sedation medications given during the procedure. Radial Artery (Wrist) access: 1. No pushing, pulling, lifting, typing, or anything that requires repetitive use/movement of the affected wrist for 3 days following your procedure. 2. OK to drive the day following your procedure. (This is because of effects of sedating medications.) Call the office at [phone] for any questions or concerns. SIRIA GUERRA MD 12/03/19 3608: Discharge Summary Brief Hospital Course Brief Hospital Course Patient seen and examined, Agree with BOTTLING LINE OPERATOR's assessment and plan. s/p PCI/CHRISSY to SVG to RCA stable and chest pain free Tele did not show any significant arrhythmias Continue DAPT and follow up as scheduled Discharge Information Scheduled Alprazolam (Xanax) 0.5 Mg Tablet, 0.5 MG PO TID, Ref 0 (Reported) Entered as Reported by: ABRAHAM MENDENHALL on 07/17/14851 Last Taken: Unknown Dose on 12/02/19 Last Action: Reviewed on 12/02/192125 by Nicole Segura Aspirin (Aspirin Ec) 325 Mg Tablet., 1 TAB PO DAILY for cad, #30 Ref 5 Prescribed by: BRAD LEE on 12/03/19 1047 Atorvastatin Calcium (Atorvastatin Calcium) 80 Mg Tablet, 10 MG PO HS for FOR CHOLESTEROL, #30 Ref 0 (Reported) Entered as Reported by: ABRAHAM MENDENHALL on 07/17/14851 Last Action: Reviewed on 12/02/192125 by Nicole Segura Budesonide/Formoterol Fumarate (Symbicort 160-4.5 Mcg Inhaler) 10.2 Gm Hfa.aer.ad, 2 PUFF IH BID, #1 Ref 5 (Reported) Entered as Reported by: ABRAHAM MENDENHALL on 07/17/14851 Last Action: Reviewed on 12/02/19806 by Yary Whitehead Clopidogrel Bisulfate (Plavix) 75 Mg Tablet, 75 MG PO DAILY for TO PREVENT BLOOD CLOTS, #30 Ref 0 (Reported) Entered as Reported by: ABRAHAM MENDENHALL on 07/17/14851 Last Action: Reviewed on 12/02/192125 by Nicole Segura Duloxetine Hcl (Cymbalta) 60 Mg Capsule., 90 MG PO DAILY for depression, (Reported) Entered as Reported by: ABRAHAM MENDENHALL on 07/17/14851 Last Action: Reviewed on 12/02/192125 by Nicole Segura Isosorbide Mononitrate (Imdur) 30 Mg Tab.er.24h, 30 MG PO DAILY, (Reported) Entered as Reported by: ABRAHAM MENDENHALL on 07/17/14851 Last Action: Reviewed on 12/02/192125 by Nicole Segura Metformin Hcl (Metformin Hcl) 500 Mg Tablet, 500 MG PO DAILY for , Ref 0 (Reported) resume Sunday12/05/2019 Entered as Reported by: GILES HILL on 06/24/15 1205 Last Action: Reviewed on 12/02/192125 by Nicole Segura Metoprolol Succinate (Toprol Xl) 100 Mg Tab.er.24h, 100 MG PO BID for FOR HYPERTENSION, #30 Ref 0 (Reported) Entered as Reported by: ABRAHAM MENDENHALL on 07/17/14851 Last Action: Reviewed on 12/02/192125 by Nicole Segura Quinapril Hcl (Quinapril Hcl) 40 Mg Tablet, 1 TAB PO DAILY for b/p, #30 Ref 5 (Reported) Entered as Reported by: LONNIE MATAMOROS on 01/30/19 1213 Last Action: Reviewed on 12/02/192125 by Nicole Segura Tiotropium [place] (Spiriva) 18 Mcg Cap.w.dev, 2 INH IH DAILY, #1 Ref 0 (Reported) Entered as Reported by: GILES HILL on 06/24/15 1205 Last Action: Reviewed on 12/02/19806 by Yary Whitehead Trazodone Hcl (Trazodone Hcl) 100 Mg Tablet, 100 MG PO HS for sleep, (Reported) Entered as Reported by: ABRAHAM MENDENHALL on 07/17/14851 Last Action: Reviewed on 12/02/192125 by BRAD Hartman APRN Dec 03, 2019 10:45 SIRIA GUERRA MD Dec 03, 2019 19:07
[2019-12-03] MEDS ORDERED: ASPI325T11 PO (10:47)
[2019-12-03 11:27] VITALS: BP 141/67
--- NOTE | 2019-12-03 12:12 | NUR ---
DISCHARGED PATIENT TO HOME. PIV AND HEART MONITOR REMOVED. ESCORTED PATIENT PER WHEELCHAIR INTO A PRIVATE VEHICLE.
== END 2019-12-03 12:09 | disposition home or self-care (01) ==
LOC: US 07:11 → 2 NORTH 12:55
PROVIDERS: ADMIT Internal Medicine Cardiovascular Disease; ATTEND Internal Medicine Cardiovascular Disease
DX: I20.0 Unstable angina (principal); I77.89 Other specified disorders of arteries and arterioles; I65.22 Occlusion and stenosis of left carotid artery
CPT/HCPCS: 36415; 80048; 85027; 85610; 92937; 93459; 93880; 96374; 96375; 96376; C1725; C1769; C1874; C1887; C1892; G0378; G0379; J0583; J1644; J2250; J3010; J3490; Q9967; 99152; 99153

== ENCOUNTER → 2020-06-04 | Outpatient (CLI) | payer MEDICARE ==
[~2020-06-04] MED LIST changes: +ASPI325T11 PO
--- NOTE | 2020-06-04 16:45 | CARD ---
MR#: [id number] Date of Study: 06/04/2020 Ordering Physician: SIRIA GUERRA, Referring Physician: SIRIA GUERRA, Tech: Jayshree Josemilli APPROVED REPORT EXAM: Two-dimensional and M-mode echocardiogram with Doppler and color Doppler. Other Information Quality : AverageHR: 66bpm INDICATION Cardiac Disease: CAD Surgery/Intervention Pacemaker: Date: 2015 CABG: Date: 2000 Stent November 2019 RISK FACTORS Hypertension Hyperlipidemia Diabetes 2D DIMENSIONS RVDd2.6 (2.9-3.5cm)Left Atrium(2D)4.0 (1.6-4.0cm) IVSd1.1 (0.7-1.1cm)Aortic Root(2D)3.5 (2.0-3.7cm) LVDd4.5 (3.9-5.9cm)LVOT Diameter2.1 (1.8-2.4cm) PWd1.0 (0.7-1.1cm)LVDs3.6 (2.5-4.0cm) FS (%) 19.5 %SV37.0 ml LVEF(%)40.3 (>50%) Aortic Valve AoV Peak Mark.116.5cm/sAoV VTI25.0cm AO Peak GR.5.4mmHgLVOT Peak Mark.96.1cm/s LVOT VTI 21.20cmAO Mean GR.3mmHg JANIS (VMAX)2.60jd9WYZ (VTI)2.85cm2 Mitral Valve MV E Lyffsvid47.5cm/sMV E Peak Gr.99mmHg MV DECEL WUXP440ppWY A Osgqjlrs682.2cm/s MV E Mean Gr.2mmHgMV HYH31pe E/A Ratio1.0MVA (PHT)4.69cm2 TDI E/Lateral E'14.4E/Medial E'18.4 Pulmonary Valve PV Peak Hevmymyg37.0cm/sPV Peak Grad.2mmHg Tricuspid Valve TR P. Dysfpsjy038gp/sRAP KWRJFAEC0kwRu TR Peak Gr.39coZoACNA20cjSs Pulmonary Vein S1 Nnpbmzcj94.4cm/sD2 Mixxwtqb90.3cm/s PVa tlzhalhl234hlnx LEFT VENTRICLE The left ventricle is normal size. There is borderline to mild concentric left ventricular hypertroph y. The left ventricular systolic function is low normal. The Ejection Fraction is 45-50%. There is no rmal LV segmental wall motion. Transmitral Doppler flow pattern is Grade II-pseudonormal filling kathy mics. RIGHT VENTRICLE The right ventricle is normal size. There is normal right ventricular wall thickness. The right ventr icular systolic function is normal. There is a pacemaker lead in the right ventricle. ATRIA The left atrium is borderline dilated. The right atrium size is normal. The interatrial septum is int act with no evidence for an atrial septal defect or patent foramen ovale as noted on 2-D or Doppler i maging. AORTIC VALVE The aortic valve is thickened but opens well. Doppler and Color Flow revealed no significant aortic r egurgitation. Calculated aortic valve area is 2.85 cm2 with maximum pressure gradient of 6 mmHg and m claudia pressure gradient of 3 mmHg. There is no significant aortic valvular stenosis. MITRAL VALVE The mitral valve is normal in structure and function. There is no evidence of mitral valve prolapse. There is no mitral valve stenosis with an mean gradient of 2.1 mmHg. Doppler and Color-flow revealed trace mitral regurgitation. TRICUSPID VALVE The tricuspid valve is normal in structure and function. Doppler and Color Flow revealed no tricuspid valve regurgitation noted. There is no tricuspid valve prolapse or vegetation. There is no tricuspid valve stenosis. PULMONIC VALVE The pulmonic valve is not well visualized. Doppler and Color Flow revealed no pulmonic valvular regur gitation. There is no pulmonic valvular stenosis. GREAT VESSELS The aortic root is normal in size. The IVC is normal in size and collapses >50% with inspiration. PERICARDIAL EFFUSION There is no evidence of significant pericardial effusion. Critical Notification Critical Value: No <Conclusion> The left ventricular systolic function is low normal. The Ejection Fraction is 45-50%. There is normal LV segmental wall motion. There is a pacemaker lead in the right ventricle. Signed by : Billy Ruiz, Electronically Approved : 06/04/2020 16:44:59
== END | disposition home or self-care (01) ==
LOC: ECHO 12:55
PROVIDERS: ATTEND Internal Medicine Cardiovascular Disease
DX: I51.7 Cardiomegaly (principal); I25.10 Atherosclerotic heart disease of native coronary artery without angina pectoris; Z95.0 Presence of cardiac pacemaker
CPT/HCPCS: 93306

== ENCOUNTER → 2020-08-06 | Outpatient (CLI) | payer MEDICARE ==
[2020-08-04 08:45] VITALS: BP 131/60
[~2020-08-06] MED LIST changes: +AMIO200T4 PO; +METO50TA6 PO; +RIVA20TA2 PO
== END | disposition home or self-care (01) ==
LOC: LAB 13:24
PROVIDERS: ATTEND Internal Medicine Pulmonary Disease
DX: Z20.828 Contact with and (suspected) exposure to other viral communicable diseases (principal)
CPT/HCPCS: U0003-CS

== ENCOUNTER → 2020-08-10 | Day surgery (SDC) | payer MEDICARE ==
[~2020-08-10] MED LIST changes: +ALBUTEROL SULFATE 2.5 MG/3 ML NEBU. NEB PRN; -AMIO200T4 PO; +AMIO200T6 PO; +EPINEPHrine 1 MG/ML VIAL INJ PRN; +EPINEPHrine 1 MG/ML VIAL ONE; +HYDROmorphone 2 MG/ML VIAL IV PRN; +IV RINGERS,LACTATED 1000ML 1,000 ML IV SCH; +LIDOCAINE 1% Multi-Dose 20 ML VIAL. INJ PRN; +LIDOCAINE 1% Multi-Dose 20 ML VIAL. ONE; +LIDOCAINE 2% VISCOUS 100 ML BOTTLE. MM PRN; +LIDOCAINE 2% VISCOUS 100 ML BOTTLE. ONE; +LIDOCAINE 4% TOPICAL 50 ML SOLUTION. MM PRN; +LIDOCAINE 4% TOPICAL 50 ML SOLUTION. ONE; +MORPHINE SULFATE 2 MG/ML VIAL. IV PRN; +ONDANSETRON PF 4 MG/2 ML VIAL. IV PRN; +PROCHLORPERAZINE 10 MG/2 ML VIAL. IV PRN; +PROPOFOL 10 MG/ML (20ML) VIAL. IV ONE; +fentaNYL PF VIAL 100 MCG/2 ML VIAL IV PRN
[2020-08-10 14:10] VITALS: BP 110/58
--- NOTE | 2020-08-10 16:49 | OP ---
DATE OF SURGERY: 08/10/2020 PROCEDURE: Bronchoscopy, brush biopsy, bronchoalveolar lavage. INDICATIONS: The patient presented with abnormal CT chest was hospitalized, treated for postop pneumonia. CT revealed a possible lung mass on the right side, undergoing a diagnostic bronchoscopy. Risks, benefits, and alternatives reviewed with the patient. He consented. Medication list was reviewed. The patient has been off of Plavix for the past 5 days along with Eliquis. DESCRIPTION OF PROCEDURE: A timeout was performed prior to sedation. The patient was sedated with the help of anesthesia. See anesthesia's notes for details. A time out was performed. The patient was sedated. As indicated above, the bronchoscope was then passed through the right naris. The vocal cords were identified moving bilaterally without any dysfunction. The vocal cords were then anesthetized with a total of 5 mL of 4% lidocaine. The bronchoscope was passed through the vocal cords into the proximal trachea, which was normal. The distal trachea was likewise normal. The left segments and subsegments were well visualized. There was no endobronchial lesion. Upon inspecting the right side, the right upper lobe segments were all patent. The scope was then advanced to the right intermedius bronchus. There was total occlusion with extrinsic compression of the right middle lobe. There is also mucosal abnormality, but no endobronchial lesion per se. The openings to the left lower lobe bronchus and subsegments were narrowed. A brushing was performed of the abnormal mucosa leading up to the occlusion of the right middle lobe and also distorted anatomy or the right lower lobe. Lavage was likewise performed. The patient tolerated procedure well with no immediate complications. FINDINGS: 1. Normal vocal cords. 2. No endobronchial lesion on the left. 3. Extrinsic compression of the right middle lobe bronchus along with mucosal abnormality. PLAN: We will await the BAL and brushing results. The patient is to follow up in my office next week on 08/17/2020. The patient is to resume his Eliquis and Plavix tonight. The above was discussed with his . SANDOVAL LEIVN MD DR: SHEREE/yamini JOB#: [id number] / [id number] MUNIRA Garcia MD
--- NOTE | 2020-08-11 00:46 | CONS ---
DATE OF CONSULTATION: 08/10/2020 REASON FOR CONSULTATION: The patient is seen in pulmonary consultation at the request of Dr. Holcomb for bronchoscopy. HISTORY OF PRESENT ILLNESS: The patient was recently hospitalized at [facility], treated for postop pneumonia, discharged home on antibiotics. He was also on Plavix and Eliquis. The Plavix and Eliquis have been on hold for 5 days. He was admitted today to undergo bronchoscopy. The patient continues to be short of breath. He denies fever or chills. No hemoptysis. PAST MEDICAL HISTORY: Otherwise remarkable for COPD, gastroesophageal, CHF, AFib, type 2 diabetes, peripheral vascular disease, chronic leukocytosis, coronary artery disease with previous stent placement, cardiomyopathy, ejection fraction of 40-45%, hyperlipidemia, hypertension. PAST SURGICAL HISTORY: Status post coronary artery bypass grafting, pacemaker, cholecystectomy. ALLERGIES: SULFA. REVIEW OF SYSTEMS: As indicated above, otherwise, a 10-point system was reviewed and negative. CURRENT MEDICATIONS: List was reviewed. PHYSICAL EXAMINATION: VITAL SIGNS: Stable. O2 saturation was greater than 92%. LUNGS: Diminished breath sounds bilaterally. CARDIOVASCULAR: Regular rate and rhythm with S1, S2, no S3. ABDOMEN: Soft. EXTREMITIES: No clubbing, cyanosis or edema. ASSESSMENT: 1. Abnormal CT chest revealing several findings including mass-like opacity in the right upper lobe along the major fissure along with small pleural effusion, ground-glass opacities. 2. Left upper lobe and left lower lobe infiltrates. 3. Acute on chronic hypoxemic respiratory failure. 4. Multiple comorbidities as indicated above. PLAN: 1. The patient admitted to undergo a diagnostic bronchoscopy. Risks, benefits, and alternatives reviewed. He consented. 2. The patient has been off of Plavix for 5 days. 3. We will discuss the above findings with the prior to discharge. The patient is to follow up in my office next week on the . SANDOVAL LEVIN MD DR: SHEREE/yamini JOB#: [id number] / [id number]
--- NOTE | 2020-08-11 17:07 | PATHOLOGY ---
Note [facility] Accession Number: [id number] TESTS RESULT FLAG UNITS REF RANGE LAB Clinician Provided Cytology Information No. of containers..01 Other (Miscellaneous) Source: BRUSH TIP RLL DIAGNOSIS: 02 BRUSH TIP RLL NEGATIVE FOR MALIGNANT CELLS. FOCALLY REACTIVE BRONCHIAL EPITHELIAL CELLS PRESENT. Signed out by: 02 Michael Le MD, Pathologist NPI- [id number] Performed by: Diana Márquez Metal Fitter ([facility]) Gross description: 01 1 TP /LCS 08/10/2020 1801 Local FLAG LEGEND: L-Low Normal,H-High Normal,LL-Alert Low,HH-Alert High <-Panic Low,>-Panic High,A-Abnormal,AA-Critical Abnormal Performed at: [address] [place] [address] Martin Bourgeois MD, 02 [facility] [address] [place] [address] Michael Le MD, Specimen Comment: A courtesy copy of this report has been sent to [phone] Specimen Comment: Report sent to / DR LUCIANO Performed at: [address], [place], [place] [id number] MD Martin Bourgeois MD Phone: [phone]
--- NOTE | 2020-08-11 17:07 | PATHOLOGY ---
Note [facility] Accession Number: [id number] TESTS RESULT FLAG UNITS REF RANGE LAB Clinician Provided Cytology Information No. of containers..01 Other (Miscellaneous) Source: BAL RLL DIAGNOSIS: 02 BAL RLL NEGATIVE FOR MALIGNANT CELLS. NORMAL BRONCHIAL CELLS ARE PRESENT. PULMONARY MACROPHAGES (DUST CELLS) ARE PRESENT. Signed out by: 02 Michael Le MD, Pathologist NPI- [id number] Performed by: Diana Márquez Janitor Caretaker ([facility]) Gross description: 01 5ML, PINK, 1 TP /LCS 08/10/2020 1758 Local FLAG LEGEND: L-Low Normal,H-High Normal,LL-Alert Low,HH-Alert High <-Panic Low,>-Panic High,A-Abnormal,AA-Critical Abnormal Performed at: [address] [place] [address] Martin Bourgeois MD, 02 [facility] [address] [place] [address] Michael Le MD, Specimen Comment: A courtesy copy of this report has been sent to [phone] Specimen Comment: [id number] Specimen Comment: Report sent to / DR LUCIANO Specimen Comment: A duplicate report has been generated due to demographic updates. Performed at: [address] [place] [address] [address], [place], [place] [id number] MD Martin Bourgeois MD Phone: [phone]
--- NOTE | 2020-08-11 17:07 | PATHOLOGY ---
Note [facility] Accession Number: [id number] TESTS RESULT FLAG UNITS REF RANGE LAB Clinician Provided Cytology Information No. of containers..01 Slide Source: BRONCH BRUSH RLL DIAGNOSIS: BRONCH BRUSH RLL NEGATIVE FOR MALIGNANT CELLS. NORMAL BRONCHIAL CELLS ARE PRESENT. Signed out by: 02 Michael Le MD, Pathologist NPI- [id number] Performed by: Diana Márquez, Director Of Philanthropy ([facility]) Gross description: 01 1 FIXED /LCS 08/10/2020 1800 Local FLAG LEGEND: L-Low Normal,H-High Normal,LL-Alert Low,HH-Alert High <-Panic Low,>-Panic High,A-Abnormal,AA-Critical Abnormal Performed at: [address] [place] [address] Martin Bourgeois MD, 02 [facility] [address] [place] [address] Michael Le MD, Specimen Comment: A courtesy copy of this report has been sent to [phone], [phone] Specimen Comment: [id number] Specimen Comment: Report sent to / DR LUCIANO Specimen Comment: A duplicate report has been generated due to demographic updates. Performed at: [address] [place] [address] [address], [place], [place] [id number] MD Martin Bourgeois MD Phone: [phone]
== END ==
LOC: SURG 12:10
PROVIDERS: ATTEND Internal Medicine Pulmonary Disease
DX: J96.21 Acute and chronic respiratory failure with hypoxia (principal); J90 Pleural effusion, not elsewhere classified; J44.9 Chronic obstructive pulmonary disease, unspecified; I48.91 Unspecified atrial fibrillation; I11.0 Hypertensive heart disease with heart failure; I50.9 Heart failure, unspecified; I73.9 Peripheral vascular disease, unspecified; E78.5 Hyperlipidemia, unspecified; E11.9 Type 2 diabetes mellitus without complications; I25.10 Atherosclerotic heart disease of native coronary artery without angina pectoris; Z98.890 Other specified postprocedural states; Z79.899 Other long term (current) drug therapy; Z87.891 Personal history of nicotine dependence; Z79.84 Long term (current) use of oral hypoglycemic drugs
CPT/HCPCS: 31624; 87070; 87102; 87205; 88104; 88112; 94640; J2704; J3490; J7613; 31622; J0171

== ENCOUNTER → 2020-09-29 | Outpatient (CLI) | payer MEDICARE ==
[2020-08-10 14:10] VITALS: BP 110/58
[~2020-09-29] MED LIST changes: -ALBUTEROL SULFATE 2.5 MG/3 ML NEBU. NEB PRN; +ATOR10TA60 PO; -EPINEPHrine 1 MG/ML VIAL INJ PRN; -EPINEPHrine 1 MG/ML VIAL ONE; +FURO40TA4 PO; -HYDROmorphone 2 MG/ML VIAL IV PRN; -IV RINGERS,LACTATED 1000ML 1,000 ML IV SCH; -LIDOCAINE 1% Multi-Dose 20 ML VIAL. INJ PRN; -LIDOCAINE 1% Multi-Dose 20 ML VIAL. ONE; -LIDOCAINE 2% VISCOUS 100 ML BOTTLE. MM PRN; -LIDOCAINE 2% VISCOUS 100 ML BOTTLE. ONE; -LIDOCAINE 4% TOPICAL 50 ML SOLUTION. MM PRN; -LIDOCAINE 4% TOPICAL 50 ML SOLUTION. ONE; -MORPHINE SULFATE 2 MG/ML VIAL. IV PRN; -ONDANSETRON PF 4 MG/2 ML VIAL. IV PRN; +POTA20TA4 PO; -PROCHLORPERAZINE 10 MG/2 ML VIAL. IV PRN; -PROPOFOL 10 MG/ML (20ML) VIAL. IV ONE; +TRAZ150T49 PO; -fentaNYL PF VIAL 100 MCG/2 ML VIAL IV PRN
--- NOTE | 2020-09-29 15:04 | KCIC ---
PQRS Compliance Statement: One or more of the following individualized dose reduction techniques were utilized for this examination: 1. Automated exposure control 2. Adjustment of the mA and/or kV according to patient size 3. Use of iterative reconstruction technique CT CERVICAL SPINE WO CONTRAST, CT THORACIC SPINE WO CONTRAST Clinical Indication: Reason: Worsening chronic neck and back pain. / Spl. Instructions: / History: Comparison: CT chest without contrast, July 31, 2020. TECHNIQUE: Helical CT imaging of the cervical and thoracic spine is performed without IV contrast. Findings: There is no acute fracture in the cervical spine. There are no perched or jumped facet joints. There is negligible grade 1 anterolisthesis of C4 on C5 and C5 on C6 and negligible grade 1 retrolisthesis of C3 on C4. There is disc space narrowing at C5/C6. C2/C3: No significant central canal stenosis or neural foraminal narrowing. C3/C4: There is small posterior disc osteophyte complex and mild ligamentum flavum redundancy probably resulting in mild central canal stenosis. There is uncovertebral facet joint hypertrophy with mild left neural foraminal narrowing. C4/C5: There is small posterior disc bulge and mild ligamentum flavum redundancy with resulting mild central canal stenosis. There is uncinate process hypertrophy with no significant neural foraminal narrowing. C5/C6: The central canal is adequate. There is severe uncinate process hypertrophy with severe bilateral neural foraminal narrowing. C6/C7: The central canal is adequate. There is uncinate process hypertrophy on the left resulting in mild neural foraminal narrowing. C7/T1: Unremarkable. There are carotid artery calcifications bilaterally. There is lytic destruction of the posterior two thirds of the T7 vertebral body. There is lytic destruction of the left worse than right pedicles. There is lytic destruction of a portion of the left lamina and left transverse process. There is a soft tissue mass associated with the lytic destruction with some degree of compromise of the central canal anteriorly and right and left lateral, for example axial image 62. The stenosis appears at least moderate. There is a faint lytic lesion of the posterior superior corner of the T5 vertebral body. There is a faint lytic lesion of the T10 vertebral body. There is nondisplaced fracture of the right posterior seventh rib that is likely pathologic. There is no loss of vertebral body height. The alignment is maintained. Mild fibrotic changes are identified in the periphery of the visualized lungs. There is a left chest ICD. There are median sternotomy wires. There are subcentimeter mediastinal lymph nodes. Incompletely imaged there is a right hilar and infrahilar soft tissue mass with narrowing of bronchi. There is opacity in the lung parenchyma lateral to the inferior hilum that is incompletely imaged which could be a continuation of the mass versus postobstructive consolidation. Left adrenal adenoma does not require follow-up. IMPRESSION: 1. There is right hilar/infrahilar soft tissue mass. There is mass or consolidation in the perihilar right lower lobe. 2. There is a destructive soft tissue mass of the posterior two thirds of the T7 vertebral body with involvement of posterior elements. The soft tissue mass compromises the central canal and stenosis may be moderate. Correlate for any neurological symptoms. 3. There are faint lytic lesions of the T5 and T10 vertebral bodies. There is nondisplaced pathologic fracture of the right posterior seventh rib. 4. 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 Electronically signed by: Willie Lu MD (09/29/2020 3:01 PM) [facility]
== END ==
LOC: KCIC CT 12:53
PROVIDERS: ATTEND Family Medicine
DX: S22.31XA Fracture of one rib, right side, initial encounter for closed fracture (principal); M43.12 Spondylolisthesis, cervical region; M48.02 Spinal stenosis, cervical region; M25.78 Osteophyte, vertebrae; X58.XXXA Exposure to other specified factors, initial encounter; Y93.89 Activity, other specified; Y92.89 Other specified places as the place of occurrence of the external cause; Y99.8 Other external cause status
CPT/HCPCS: 72125; 72128